=== PATIENT | male | born 1985 | race Hispanic/Latino ===

== ENCOUNTER 2021-09-16 20:10 | Emergency (ER) | payer SELFPAY ==
[~2021-09-16] VITALS: Ht 175.3 cm; Wt 91.7 kg
[2021-09-16 20:12] VITALS: BP 150/90
[2021-09-16] MEDS ORDERED: PSEUDOEPHEDRINE 30 MG TAB PO STA (21:21)
[2021-09-16] MEDS ORDERED: FLON1SPR NARES (21:23)
[2021-09-16] MEDS ORDERED: PSEU120T19 PO (21:23)
[2021-09-16] MEDS ORDERED: IBUP-1022 PO (21:23)
[2021-09-16] MEDS ORDERED: MAGICMW SSP (21:23)
[2021-09-16] MEDS ORDERED: IBUPROFEN 600MG TAB PO ONE (21:25)
[2021-09-16] MEDS ORDERED: MAGIC MOUTHWASH *ED ONLY* 5ML ORAL SYRINGE SS ONE (21:25)
--- OUTSIDE RECORDS SUMMARY | 2021-09-16 21:27 | CCD ---
Author Author [facility] Address Unknown Phone Unavailable Care Team Providers Care Supervisor Slate Splitting Name Role Phone Maring, Julio PA Unavailable Unavailable Maring, Julio PA Unavailable Unavailable Maring, Julio PA Unavailable Unavailable Maring, Julio PA Unavailable Unavailable Maring, Julio PA Unavailable Unavailable Maring, Julio PA Unavailable Unavailable Maring, Julio PA Unavailable Unavailable Maring, Julio PA Unavailable Unavailable Maring, Julio PA Unavailable Unavailable Maring, Julio PA Unavailable Unavailable Maring, Julio PA Unavailable Unavailable Maring, Julio PA Unavailable Unavailable Maring, Julio PA Unavailable Unavailable Maring, Julio PA Unavailable Unavailable Maring, Julio PA Unavailable Unavailable Maring, Julio PA Unavailable Unavailable Re-disclosure Warning The records that you are about to access may contain information from federally-assisted alcohol or drug abuse programs. If such information is present, then the following federally mandated warning applies: This information has been disclosed to you from records protected by federal confidentiality rules (42 CFR part 2). The federal rules prohibit you from making any further disclosure of this information unless further disclosure is expressly permitted by the written consent of the person to whom it pertains or as otherwise permitted by 42 CFR part 2. A general authorization for the release of medical or other information is NOT sufficient for this purpose. The Federal rules restrict any use of the information to criminally investigate or prosecute any alcohol or drug abuse patient.The records that you are about to access may contain highly sensitive health information, the redisclosure of which is protected by Article 27-F of the [facility] Public Health law. If you continue you may have access to information: Regarding HIV / AIDS; Provided by facilities licensed or operated by the [facility] Office of Mental Health; or Provided by the [facility] Office for People With Developmental Disabilities. If such information is present, then the following [facility] mandated warning applies: This information has been disclosed to you from confidential records which are protected by state law. State law prohibits you from making any further disclosure of this information without the specific written consent of the person to whom it pertains, or as otherwise permitted by law. Any unauthorized further disclosure in violation of state law may result in a fine or senior living sentence or both. A general authorization for the release of medical or other information is NOT sufficient authorization for further disc losure. Encounters Encounter Providers Location Date Indications Data Source(s ) Outpatient Attender: Julio DEL RIO 09/07/20 10:26:27 AM EDT - 09/07/2021 10:47:45 AM EDT [facility] ([facility] ) Medications No Information Insurance Providers Payer name Policy type / Coverage type Policy ID Covered libertarian ID Covered libertarian's relationship to vasquez Policy Vasquez Plan Information [employer] emp [id number] Employee [id number] SELF PAY SP Problems, Conditions, and Diagnoses No Information Surgeries/Procedures No Information Results No Information Social History No Information
[2021-09-16 21:52] LABS: RSV AMPLIFICATION NEGATIVE (NEGATIVE)
== END 2021-09-16 21:59 | disposition home or self-care (01) ==
LOC: M ED 20:10
DX: R07.0 Pain in throat (principal); R05.9 Cough, unspecified; R09.81 Nasal congestion